=== PATIENT | male | born 1995 | race Caucasian/White ===

== ENCOUNTER → 2018-07-22 | Outpatient (REF) | payer OTHER | LOC: M LAB REF 14:00 | DX: L90.5 Scar conditions and fibrosis of skin (principal) ==

== ENCOUNTER → 2018-07-28 | Outpatient (REF) | payer OTHER | LOC: M SFHCPLAZ 17:35 | DX: S21.109A Unspecified open wound of unspecified front wall of thorax without penetration into thoracic cavity, initial encounter (principal); X58.XXXA Exposure to other specified factors, initial encounter; Y92.9 Unspecified place or not applicable | CPT/HCPCS: 87186 ==

== ENCOUNTER → 2019-03-04 | Outpatient (CLI) | payer OTHER ==
--- NOTE | 2019-03-04 19:47 | REP ---
Clinical: Trauma. Technique: AP and lateral views of the right tibia / fibula. Findings: No acute fracture or dislocation. No subcutaneous emphysema. No foreign body. Impression: No acute fracture or dislocation. No obvious acute injury. Electronically Signed by Devante Rose MD 03/04/2019 07:39 P
== END ==
LOC: M WUC 19:12
PROVIDERS: ATTEND Physician Assistant
DX: M25.561 Pain in right knee (principal)

== ENCOUNTER 2022-06-28 00:04 | Emergency (ER) | payer OTHER, SELFPAY ==
[~2022-06-28] VITALS: Ht 182.9 cm; Wt 92.1 kg
[2022-06-28 00:05] VITALS: BP 125/64
[2022-06-28] MEDS ORDERED: LIDOCAINE W/EPINEPHRINE 1% 20ML VIAL SC ONE (03:25)
[2022-06-28] MEDS ORDERED: BOOSTRIX/ADACEL VACCINE (DIPHTH/PERTUSS/ACELL/TETANUS) 0.5ML SYR IM.IMMUN ONE (03:25)
== END 2022-06-28 05:04 | disposition home or self-care (01) ==
LOC: M ED 00:04
DX: S61.412A Laceration without foreign body of left hand, initial encounter (principal); W26.8XXA Contact with other sharp object(s), not elsewhere classified, initial encounter; Y99.0 Civilian activity done for income or pay; J30.2 Other seasonal allergic rhinitis; Z23 Encounter for immunization

== ENCOUNTER 2025-06-10 14:11 | Inpatient (IN) | payer BC, OTHER ==
[~2025-06-10] VITALS: Ht 182.9 cm; Wt 83.4 kg
[2025-06-10] MEDS ORDERED: SERT50TA29 PO (14:26)
[2025-06-10 15:06] LABS: BASO # 0.0 10^3/uL (0.0-0.2); BASO % 0.4 % (0.0-1.0); EOS # 0.2 10^3/uL (0.0-0.5); EOS % 1.5 % (0.0-3.0); LYMPH # 1.5 10^3/uL (1.5-5.0); LYMPH % 13.8 % (24.0-44.0); MONO # 1.0 10^3/uL (0.0-0.8); MONO % 9.2 % (2.0-8.0); NEUTROPHILS # 8.2 10^3/uL (1.5-8.5); NEUTROPHILS % 74.6 % (36.0-66.0); PLATELET COUNT, AUTOMATED 353 10^3/uL (150-450)
[2025-06-10 15:54] LABS: CALCIUM LEVEL 9.2 MG/DL (8.5-10.1); CARBON DIOXIDE LEVEL 24 MMOL/L (20-31); CHLORIDE LEVEL 88 MMOL/L (98-107); CREATININE FOR GFR 0.85 MG/DL (0.70-1.30); GLOMERULAR FILTRATION RATE > 90.0 (>60); POTASSIUM SERUM 4.8 MMOL/L (3.5-5.1); SODIUM LEVEL 123 MMOL/L (136-145)
[2025-06-10] MEDS: NS (Normal Saline) 0.9% 1,000 ML IV ONE ×2 (16:18→18:15)
[2025-06-10 16:50] LABS: VENOUS BASE EXCESS -1.8 (-2.0-2.0); VENOUS HCO3 23.9 MMOL/L (23.0-27.0); VENOUS O2 SATURATION 83.5 % (60.0-80.0); VENOUS PARTIAL PRESSURE CO2 43.5 mmHg (38.0-50.0); VENOUS PARTIAL PRESSURE O2 48.5 mmHg (30.0-50.0); VENOUS PH 7.357 UNITS (7.330-7.430); VENOUS STANDARD HCO3 22.6 MMOL/L; VENOUS TOTAL CO2 25.2 MMOL/L (24.0-28.0)
[2025-06-10 16:59] LABS: KETONE, URINE AUTO RFX 1+ mg/dL (NEGATIVE); LEUKOCYTE ESTERASE UR AUTO RFX NEGATIVE (NEGATIVE); NITRITE, URINE AUTO RFX NEGATIVE (NEGATIVE); RBC, URINE AUTO RFX 1 /HPF (0-3); SQUAM EPITHELIAL CELL UR AURFX 0 /HPF (0-6); WBC, URINE AUTO RFX 0 /HPF (0-3)
[2025-06-10 17:22] LABS: ACETONE/KETONE 1.89 MMOL/L (0.02-0.27); OSMOLALITY SERUM 307.0 MOSM/KG (275-295)
[2025-06-10 17:25] LABS: ALT/SGPT 17.0 U/L (7.0-40); AST/SGOT 36.0 U/L (<34)
[2025-06-10 17:37] LABS: ESTIMATED AVERAGE GLUCOSE 209.0 MG/DL (60-110)
[2025-06-10] MEDS ORDERED: PERCTAB2 PO (17:49)
[2025-06-10] MEDS ORDERED: HOME MED LIST COMPLETE! XX SCH (17:50)
[2025-06-10] MEDS: INSULIN LISPRO (NovoLOG) PER UNIT SC STA (18:58)
[2025-06-10 20:11] LABS: CALCIUM LEVEL 8.7 MG/DL (8.5-10.1); CARBON DIOXIDE LEVEL 25 MMOL/L (20-31); CHLORIDE LEVEL 99 MMOL/L (98-107); CREATININE FOR GFR 0.75 MG/DL (0.70-1.30); GLOMERULAR FILTRATION RATE > 90.0 (>60); POTASSIUM SERUM 4.4 MMOL/L (3.5-5.1); SODIUM LEVEL 132 MMOL/L (136-145)
[2025-06-10] MEDS ORDERED: ISOVUE-370 76% 100 ML VIAL As Ordered ONE (20:49)
[2025-06-10] MEDS: LR 1,000 ML IV SCH (21:19)
[2025-06-10] MEDS: INSULIN LISPRO (NovoLOG) PER UNIT SC SCH (21:33)
[2025-06-10] MEDS: MESALAMINE 400 MG PO SCH (22:52)
[2025-06-10] MEDS: SERTRALINE HCL 50 MG TAB PO SCH (22:52)
[2025-06-10 23:55] LABS: INR 1.03
[2025-06-10 23:59] VITALS: BP 132/81; TEMP 98.1; O2SAT 97
[2025-06-11] VITALS (7 sets, daily range): BP systolic 122–145; BP diastolic 77–91; TEMP 97.3–98.4; O2SAT 94–97
[2025-06-11] MEDS: INSULIN LISPRO (NovoLOG) PER UNIT SC ONE (00:18)
[2025-06-11 00:39] LABS: MONO REFLEX EBV COMP NEGATIVE (NEGATIVE)
[2025-06-11 00:57] LABS: HEPATITIS C VIRUS ABY INDEX 0.04 INDEX (<0.8)
[2025-06-11 01:19] LABS: CREATININE, URINE 18.3 MG/DL; MALB URINE SIEMENS < 3.0 MG/L
[2025-06-11 06:22] LABS: PLATELET COUNT, AUTOMATED 315 10^3/uL (150-450)
[2025-06-11 06:47] LABS: CALCIUM LEVEL 8.6 MG/DL (8.5-10.1); CARBON DIOXIDE LEVEL 26 MMOL/L (20-31); CHLORIDE LEVEL 103 MMOL/L (98-107); CHOLESTEROL LEVEL 113 MG/DL (<200); CHOLESTEROL RISK RATIO 4.63 (<5); CREATININE FOR GFR 0.78 MG/DL (0.70-1.30); GLOMERULAR FILTRATION RATE > 90.0 (>60); LDL CHOLESTEROL 29.6 MG/DL (<100); NON-HDL-C 88.6 MG/DL; POTASSIUM SERUM 4.2 MMOL/L (3.5-5.1); SODIUM LEVEL 136 MMOL/L (136-145); TRIGLYCERIDES LEVEL 295 MG/DL (<150)
[2025-06-11] MEDS: INSULIN LISPRO (NovoLOG) PER UNIT SC SCH ×2 (10:31→13:30)
[2025-06-11] MEDS ORDERED: PEN-308 SC (12:05)
[2025-06-11] MEDS ORDERED: [UNRECOGNIZED DRUG - CODE] MC (12:05)
[2025-06-11] MEDS: LanTUS (INSULIN GLARGINE INJ) 1 UNITS/0.01 ML SC ONE (13:29)
[2025-06-11] MEDS ORDERED: LanTUS (INSULIN GLARGINE INJ) 1 UNITS/0.01 ML SC SCH (21:00)
[2025-06-12 01:07] VITALS: BP 167/89; TEMP 99.1; O2SAT 97
[2025-06-12 04:02] VITALS: BP 144/88; TEMP 97.5; O2SAT 97
[2025-06-12 06:31] LABS: PLATELET COUNT, AUTOMATED 297 10^3/uL (150-450)
[2025-06-12 06:55] LABS: CALCIUM LEVEL 9.1 MG/DL (8.5-10.1); CARBON DIOXIDE LEVEL 28 MMOL/L (20-31); CHLORIDE LEVEL 102 MMOL/L (98-107); CREATININE FOR GFR 0.75 MG/DL (0.70-1.30); GLOMERULAR FILTRATION RATE > 90.0 (>60); POTASSIUM SERUM 4.2 MMOL/L (3.5-5.1); SODIUM LEVEL 136 MMOL/L (136-145)
[2025-06-12 08:06] VITALS: BP 140/90; TEMP 97.3; O2SAT 95
[2025-06-12] MEDS: OMEPRAZOLE 20MG CAP PO SCH (08:10)
[2025-06-12] MEDS: ACETAMINOPHEN 325 MG TAB PO PRN (08:11)
[2025-06-12] MEDS: predniSONE 20 MG TAB PO SCH (08:11)
[2025-06-12] MEDS: LanTUS (INSULIN GLARGINE INJ) 1 UNITS/0.01 ML SC ONE (08:13)
[2025-06-12] MEDS: FLUZONE VACCINE TRI PF(25-26) 0.5ML SYRINGE IM.IMMUN ONE (08:20)
[2025-06-12] MEDS ORDERED: MESA50SU PR (10:05)
[2025-06-12] MEDS ORDERED: MESA400C2 PO (10:05)
[2025-06-12] MEDS ORDERED: LANTINJ4 SC (10:06)
[2025-06-12] MEDS ORDERED: NOVOINJ3 SC (10:10)
[2025-06-12 12:00] VITALS: BP 138/87; TEMP 97.2; O2SAT 96
[2025-06-12] MEDS ORDERED: MESALAMINE 1,000 MG SUPP PR SCH (21:00)
== END 2025-06-12 14:47 | disposition home or self-care (01) | DRG 420 ==
LOC: M ED 14:11 → M ED INP 21:39 → M MSPAV 23:03
PROVIDERS: ADMIT Student in an Organized Health Care Education/Training Program; ATTEND General Practice
DX: E11.65 Type 2 diabetes mellitus with hyperglycemia (principal); K51.90 Ulcerative colitis, unspecified, without complications; K76.0 Fatty (change of) liver, not elsewhere classified; R16.2 Hepatomegaly with splenomegaly, not elsewhere classified; K80.20 Calculus of gallbladder without cholecystitis without obstruction; R53.1 Weakness; F39 Unspecified mood [affective] disorder; R63.4 Abnormal weight loss; Z79.899 Other long term (current) drug therapy

== ENCOUNTER 2025-07-15 09:44 | Emergency (ER) | payer BC ==
[~2025-07-15] VITALS: Ht 182.9 cm; Wt 85.0 kg
[~2025-07-15 09:44] MED LIST: LANTINJ4 SC; MESA400C2 PO; MESA50SU PR; NOVOINJ3 SC; PEN-308 SC; PERCTAB2 PO; SERT50TA29 PO; [UNRECOGNIZED DRUG - CODE] MC
[2025-07-15 11:29] LABS: KETONE, URINE AUTO RFX TRACE mg/dL (NEGATIVE); LEUKOCYTE ESTERASE UR AUTO RFX NEGATIVE (NEGATIVE); MUCUS, URINE RFX LARGE (NEGATIVE); NITRITE, URINE AUTO RFX NEGATIVE (NEGATIVE); RBC, URINE AUTO RFX 5 /HPF (0-3); SQUAM EPITHELIAL CELL UR AURFX 0 /HPF (0-6)
[2025-07-15 11:31] LABS: WBC, URINE AUTO RFX 23 /HPF (0-3)
[2025-07-15] MEDS: NS (Normal Saline) 0.9% 1,000 ML IV ONE (11:39)
[2025-07-15 11:52] LABS: PLATELET COUNT, AUTOMATED 346 10^3/uL (150-450)
[2025-07-15] MEDS ORDERED: ISOVUE-370 76% 100 ML VIAL As Ordered ONE (11:54)
[2025-07-15 12:13] LABS: C REACTIVE PROTEIN QUANTITATIV 5.97 MG/DL (<1.0)
[2025-07-15 12:14] LABS: ALT/SGPT 12.0 U/L (7.0-40); AST/SGOT 15.0 U/L (<34)
[2025-07-15 12:18] LABS: ATYPICAL LYMPH 2 % (0-5); BASOPHILS 1 % (0-1); LYMPHOCYTES 6 % (16-44); MONOCYTES 22 % (0-5); NEUTROPHILS 60 % (28-66)
[2025-07-15 12:19] LABS: PLATELET ESTIMATE NORMAL (NORMAL)
[2025-07-15] MEDS ORDERED: DIFI200T PO (14:15)
[2025-07-15] MEDS ORDERED: ZITH250T PO (14:15)
[2025-07-15 14:33] VITALS: BP 124/80; TEMP 98.7; O2SAT 97
== END 2025-07-15 14:38 | disposition home or self-care (01) ==
LOC: M ED 09:44
DX: K51.90 Ulcerative colitis, unspecified, without complications (principal); A09 Infectious gastroenteritis and colitis, unspecified; E10.9 Type 1 diabetes mellitus without complications; Z79.1 Long term (current) use of non-steroidal anti-inflammatories (NSAID); Z79.4 Long term (current) use of insulin; Z79.899 Other long term (current) drug therapy
CPT/HCPCS: 74177; 80047; 80076; 81001; 83605; 83690; 85025; 85652; 86140; 87086; 87324; 87507; 96360; 96361; 99284; Q9967

== ENCOUNTER 2025-07-20 09:29 | Emergency (ER) | payer BC ==
[~2025-07-20] VITALS: Ht 182.9 cm; Wt 84.7 kg
[~2025-07-20 09:29] MED LIST changes: +DIFI200T PO; +ZITH250T PO
[2025-07-20 10:30] LABS: BASO # 0.1 10^3/uL (0.0-0.2); BASO % 0.2 % (0.0-1.0); EOS # 0.0 10^3/uL (0.0-0.5); EOS % 0.2 % (0.0-3.0); LYMPH # 1.1 10^3/uL (1.5-5.0); LYMPH % 5.0 % (24.0-44.0); MONO # 2.2 10^3/uL (0.0-0.8); MONO % 10.1 % (2.0-8.0); NEUTROPHILS # 18.2 10^3/uL (1.5-8.5); NEUTROPHILS % 83.2 % (36.0-66.0); PLATELET COUNT, AUTOMATED 352 10^3/uL (150-450)
[2025-07-20 10:55] LABS: CPK CREATINE PHOSPHOKINASE 63 U/L (46-171)
[2025-07-20 11:06] LABS: CALCIUM LEVEL 8.5 MG/DL (8.5-10.1); CARBON DIOXIDE LEVEL 26 MMOL/L (20-31); CHLORIDE LEVEL 94 MMOL/L (98-107); CK-MB VALUE MASS 4.2 NG/ML (<3.6); CREATININE FOR GFR 0.92 MG/DL (0.70-1.30); GLOMERULAR FILTRATION RATE > 90.0 (>60); MB/CK RELATIVE INDEX 6.66 (< OR =4); POTASSIUM SERUM 3.7 MMOL/L (3.5-5.1); SODIUM LEVEL 131 MMOL/L (136-145)
[2025-07-20] MEDS ORDERED: ISOVUE-370 76% 100 ML VIAL As Ordered ONE (11:23)
[2025-07-20 11:57] LABS: CK-MB VALUE MASS 4.4 NG/ML (<3.6)
[2025-07-20 12:02] LABS: CPK CREATINE PHOSPHOKINASE 65.0 U/L (46-171); MB/CK RELATIVE INDEX 6.76 (< OR =4)
[2025-07-20] MEDS ORDERED: LANTINJ4 SC (12:32)
[2025-07-20] MEDS ORDERED: NOVOINJ3 SC (12:32)
[2025-07-20] MEDS ORDERED: MESA400C2 PO (12:32)
[2025-07-20] MEDS ORDERED: MESA50SU PR (12:32)
[2025-07-20] MEDS ORDERED: DIFI200T PO (12:32)
[2025-07-20] MEDS ORDERED: HOME MED LIST COMPLETE! XX SCH (12:35)
[2025-07-20] MEDS: NS (Normal Saline) 0.9% 1,000 ML IV ONE (14:17)
[2025-07-20] MEDS: KETOROLAC 30 MG/ML 1 ML VIAL IV ONE (17:16)
[2025-07-20 21:15] VITALS: BP 99/68; TEMP 98.1; O2SAT 95
== END 2025-07-20 21:33 | disposition short-term general hospital (02) ==
LOC: M ED 09:29
DX: I21.4 Non-ST elevation (NSTEMI) myocardial infarction (principal); K51.90 Ulcerative colitis, unspecified, without complications; I50.20 Unspecified systolic (congestive) heart failure; E10.9 Type 1 diabetes mellitus without complications; R00.0 Tachycardia, unspecified; F10.10 Alcohol abuse, uncomplicated; Z79.4 Long term (current) use of insulin; Z79.899 Other long term (current) drug therapy
CPT/HCPCS: 71045; 71275; 80048; 82550; 82553; 84484; 85025; 87880; 93005; 93041; 93306; 94760; 96374; 99285; J1885; Q9967